=== PATIENT | male | born 2000 | race Caucasian/White ===

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

== ENCOUNTER 2019-04-06 08:00 | Outpatient (CLI) | payer MEDICAID ==
[2019-04-06 11:52] LABS: BASOPHILS % (AUTO) 0.6 %; EOSINOPHILS # (AUTO) 0.1 10^3/uL (0.0-0.7); EOSINOPHILS % (AUTO) 2.1 %; LYMPHOCYTES # (AUTO) 1.9 10^3/uL (1.5-3.5); LYMPHOCYTES % (AUTO) 30.5 %; MEAN CORPUSCULAR HEMOGLOBIN 29.3 pg (27.0-31.0); MEAN CORPUSCULAR HGB CONC 33.4 g/dL (32.0-36.0); MEAN CORPUSCULAR VOLUME 87.7 fL (80.0-94.0); MEAN PLATELET VOLUME 11.4 fL (7.4-11.4); MONOCYTES # (AUTO) 0.6 10^3/uL (0.0-1.0); MONOCYTES % (AUTO) 9.2 %; NEUTROPHILS # (AUTO) 3.6 10^3/uL (1.5-6.6); PLT - PLATELET COUNT 216 10^3/uL (130-450); RED BLOOD COUNT 5.46 10^6/uL (4.70-6.10); WHITE BLOOD COUNT 6.3 x10^3/uL (4.8-10.8)
[2019-04-06 12:15] LABS: ALBUMIN 4.7 g/dL (3.2-5.5); ALBUMIN/GLOBULIN RATIO 1.5 (1.0-2.2); ALKALINE PHOSPHATASE 89 IU/L (42-121); ALT ALANINE AMINOTRANSFERASE 105 IU/L (10-60); AST ASPARTATE AMINOTRANSFERASE 49 IU/L (10-42); BILIRUBIN,TOTAL 1.1 mg/dL (0.2-1.0); BUN - BLOOD UREA NITROGEN 11 mg/dL (6-20); CALCIUM 9.2 mg/dL (8.5-10.3); CARBON DIOXIDE - CO2 25 mmol/L (21-32); CHLORIDE 102 mmol/L (101-111); CHOL/HDL RATIO 6.6 (<5.0); CHOLESTEROL 198 mg/dL; GFR - MDRD 96 (>89); GLUCOSE 132 mg/dL (70-100); HDL CHOLESTEROL 30 mg/dL; LDL CHOLESTEROL,CALCULATED 123 mg/dL; LDL/HDL RATIO 4.1 (<3.6); SODIUM 137 mmol/L (135-145); TOTAL PROTEIN 7.9 g/dL (6.7-8.2); VLDL CHOLESTEROL 45 mg/dL
== END 2019-04-06 23:59 | disposition home or self-care (01) ==
LOC: LAB.N 08:00
PROVIDERS: ATTEND Nurse Practitioner Gerontology
DX: Z00.00 Encounter for general adult medical examination without abnormal findings (principal); Z79.890 Hormone replacement therapy
CPT/HCPCS: 36415; 80053; 80061; 82670; 83721; 84403; 84443; 85025

== ENCOUNTER 2019-04-16 11:39 | Outpatient (CLI) | payer MEDICAID ==
[2019-04-16 18:42] LABS: ALBUMIN 4.4 g/dL (3.2-5.5); ALBUMIN/GLOBULIN RATIO 1.3 (1.0-2.2); BILIRUBIN,TOTAL 0.8 mg/dL (0.2-1.0); CALCIUM 9.4 mg/dL (8.5-10.3); CREATININE 0.7 mg/dL (0.6-1.2); TOTAL PROTEIN 7.7 g/dL (6.7-8.2)
[2019-04-16 19:11] LABS: HB2 TOTAL 16.6 g/dL; HEMOGLOBIN A1C 0.75 g/dL; HEMOGLOBIN A1C % 6.3 % (4.6-6.2)
== END 2019-04-16 23:59 | disposition home or self-care (01) ==
LOC: LAB.N 11:39
PROVIDERS: ATTEND Physician Assistant Medical
DX: R74.8 Abnormal levels of other serum enzymes (principal); R73.9 Hyperglycemia, unspecified
CPT/HCPCS: 36415; 80053; 83036

== ENCOUNTER 2019-08-16 11:59 | Outpatient (CLI) | payer MEDICAID ==
--- NOTE | 2019-08-16 13:33 | Ultrasound Report ---
PROCEDURE: Abdomen Limited INDICATIONS: ABD PX TECHNIQUE: Real-time scanning was performed of the abdominal and retroperitoneal organs, with image documentatio n. COMPARISON: None available. FINDINGS: Liver: Mildly prominent in size. Increased in echogenicity. Gallbladder: Gallbladder is nondistended. No stones or sludge. No gallbladder wall thickening. No per icholecystic fluid. Negative sonographic Yee sign. Biliary ducts: Intrahepatic bile ducts are non-dilated. Extrahepatic bile duct caliber measures 7 m m. Normal is 6-7 mm or less in diameter, or 10 mm or less post-cholecystectomy. Pancreas: Visualized portions of the pancreas are sonographically normal. Right kidney: Normal in size and echotexture. Right kidney measures 12.6 cm long. No hydronephrosis or nephrolithiasis. No solid masses. Aorta: Visualized aorta is normal in caliber at less than 3 cm. Iliacs: Proximal common iliac arteries are normal in caliber at less than 2.5 cm. IVC: Intrahepatic inferior vena cava is patent. Miscellaneous: No free abdominal fluid. IMPRESSION: 1. Hepatomegaly. 2. Increased echogenicity of the hepatic parenchyma. This is most commonly seen in hepatic steatosis. Other forms of hepatocellular disease could have a similar appearance. 3. No gallstones. No acute cholecystitis. 4. No right kidney hydronephrosis. Reviewed by: Hakan Canales MD on 08/16/2019 1:31 PM PDT Approved by: Hakan Canales MD on 08/16/2019 1:31 PM PDT Station ID: [id number]
== END 2019-08-16 12:00 | disposition home or self-care (01) ==
LOC: DI 11:59
PROVIDERS: ATTEND Family Medicine
DX: R16.0 Hepatomegaly, not elsewhere classified (principal)
CPT/HCPCS: 76705

== ENCOUNTER 2019-11-16 10:27 | Outpatient (CLI) | payer MEDICAID ==
[2019-11-16 12:09] LABS: ALBUMIN 4.7 g/dL (3.2-5.5); ALBUMIN/GLOBULIN RATIO 1.4 (1.0-2.2); CALCIUM 9.7 mg/dL (8.5-10.3); CREATININE 0.9 mg/dL (0.6-1.2); TOTAL PROTEIN 8.1 g/dL (6.7-8.2)
[2019-11-16 12:34] LABS: HEMOGLOBIN A1c% 10.7 % (4.27-6.07)
== END 2019-11-16 23:59 | disposition home or self-care (01) ==
LOC: LAB.WCP 10:27
PROVIDERS: ATTEND Nurse Practitioner Family
DX: R73.03 Prediabetes (principal); R74.8 Abnormal levels of other serum enzymes
CPT/HCPCS: 36415; 80053; 83036

== ENCOUNTER 2020-03-13 13:45 | Outpatient (CLI) | payer MEDICAID ==
[2020-03-13 18:38] LABS: ALBUMIN 4.4 g/dL (3.2-5.5); ALBUMIN/GLOBULIN RATIO 1.4 (1.0-2.2); BILIRUBIN,TOTAL 0.9 mg/dL (0.2-1.0); CALCIUM 9.4 mg/dL (8.5-10.3); CREATININE 0.9 mg/dL (0.6-1.2); TOTAL PROTEIN 7.6 g/dL (6.7-8.2)
[2020-03-13 20:06] LABS: HEMOGLOBIN A1c% 9.3 % (4.27-6.07)
== END 2020-03-13 23:59 | disposition home or self-care (01) ==
LOC: LAB.WCP 13:45
PROVIDERS: ATTEND Nurse Practitioner Family
DX: R73.03 Prediabetes (principal); R74.8 Abnormal levels of other serum enzymes
CPT/HCPCS: 36415; 80053; 83036

== ENCOUNTER 2020-06-03 08:00 | Outpatient (CLI) | payer MEDICAID ==
[2020-06-03 18:17] LABS: CREATININE 0.8 mg/dL (0.6-1.2)
[2020-06-03 19:55] LABS: ESTIMATED AVERAGE GLUCOSE 203 mg/dL (70-100); HEMOGLOBIN A1c% 8.7 % (4.27-6.07)
== END 2020-06-03 23:59 | disposition home or self-care (01) ==
LOC: LAB.WCP 08:00
PROVIDERS: ATTEND Nurse Practitioner Family
DX: E11.9 Type 2 diabetes mellitus without complications (principal)
CPT/HCPCS: 36415; 80048; 83036

== ENCOUNTER 2020-11-28 08:00 | Outpatient (CLI) | payer MEDICAID ==
[2020-11-28 17:43] LABS: BASOPHILS # (AUTO) 0.1 10^3/uL (0.0-0.1); BASOPHILS % (AUTO) 0.6 %; EOSINOPHILS # (AUTO) 0.1 10^3/uL (0.0-0.7); EOSINOPHILS % (AUTO) 1.2 %; HCT - HEMATOCRIT 53.4 % (42.0-52.0); HGB - HEMOGLOBIN 17.4 g/dL (14.0-18.0); LYMPHOCYTES # (AUTO) 2.4 10^3/uL (1.5-3.5); MEAN CORPUSCULAR HEMOGLOBIN 29.4 pg (27.0-31.0); MEAN CORPUSCULAR HGB CONC 32.6 g/dL (32.0-36.0); MEAN CORPUSCULAR VOLUME 90.2 fL (80.0-94.0); MEAN PLATELET VOLUME 11.6 fL (7.4-11.4); MONOCYTES # (AUTO) 0.7 10^3/uL (0.0-1.0); MONOCYTES % (AUTO) 8.5 %; NEUTROPHILS # (AUTO) 4.9 10^3/uL (1.5-6.6); NEUTROPHILS % (AUTO) 60.2 %; PLT - PLATELET COUNT 247 10^3/uL (130-450); RED BLOOD COUNT 5.92 10^6/uL (4.70-6.10); RED CELL DISTRIBUTION WIDTH 12.5 % (12.0-15.0); WHITE BLOOD COUNT 8.2 x10^3/uL (4.8-10.8)
[2020-11-28 18:15] LABS: CREATININE,URINE 139.4 mg/dL; MICROALBUM/CREATININE RATIO,UR 39.5 ug/mg (<30.0); MICROALBUMIN,URINE 5.5 mg/dL (0-300.0)
[2020-11-28 18:26] LABS: ALBUMIN/GLOBULIN RATIO 1.5 (1.0-2.2); ALKALINE PHOSPHATASE 68 IU/L (42-121); ALT ALANINE AMINOTRANSFERASE 86 IU/L (10-60); AST ASPARTATE AMINOTRANSFERASE 35 IU/L (10-42); BILIRUBIN,TOTAL 0.8 mg/dL (0.2-1.0); BUN - BLOOD UREA NITROGEN 16 mg/dL (6-20); CALCIUM 10.3 mg/dL (8.5-10.3); CARBON DIOXIDE - CO2 23 mmol/L (21-32); CHLORIDE 107 mmol/L (101-111); CHOL/HDL RATIO 6.3 (<5.0); CHOLESTEROL 209 mg/dL; GFR - MDRD 94 (>89); GLUCOSE 139 mg/dL (70-100); HDL CHOLESTEROL 33 mg/dL; LDL CHOLESTEROL,CALCULATED 115 mg/dL; LDL/HDL RATIO 3.5 (<3.6); POTASSIUM 3.9 mmol/L (3.5-5.0); SODIUM 143 mmol/L (135-145); TOTAL PROTEIN 8.3 g/dL (6.7-8.2); TRIGLYCERIDES 305 mg/dL; VLDL CHOLESTEROL 61 mg/dL
[2020-11-28 18:38] LABS: THYROID STIMULATING HORMONE 2.17 uIU/mL (0.34-5.60)
[2020-11-28 21:32] LABS: ESTIMATED AVERAGE GLUCOSE 171 mg/dL (70-100); HEMOGLOBIN A1c% 7.6 % (4.27-6.07)
== END 2020-11-28 23:59 | disposition home or self-care (01) ==
LOC: LAB.WCP 08:00
PROVIDERS: ATTEND Nurse Practitioner
DX: E11.9 Type 2 diabetes mellitus without complications (principal); R53.83 Other fatigue
CPT/HCPCS: 36415; 80053; 80061; 82043; 82570; 83036; 83721; 84443; 85025

== ENCOUNTER 2021-03-17 08:00 | Outpatient (CLI) | payer MEDICAID | END 2021-03-17 23:59 | LOC: LAB 08:00 | PROVIDERS: ATTEND Physician Assistant | DX: U07.1 COVID-19 (principal) ==

== ENCOUNTER 2021-03-24 11:36 | Outpatient (CLI) | payer MEDICAID ==
--- NOTE | 2021-03-24 13:01 | Ultrasound Report ---
PROCEDURE: Testicle INDICATIONS: MASS OF TESTICLE TECHNIQUE: Real-time scanning was performed of the scrotum and testicles, with image documentation. Color and p ulse Doppler interrogation was performed of both testicles. COMPARISON: None. FINDINGS: Right: Testicle is normal in size at 4.8 x 2.9 x 3.2 cm, and homogenous in echotexture. There are a few scattered testicular microliths identified. Epididymis is normal in overall size and morphology. No varicoceles. Small right hydrocele. Overlying scrotal skin is normal in thickness. Left: Testicle is normal in size at 4.4 x 2.7 x 2.9 cm, and homogeneous in echotexture. There are a few testicular microlithiasis identified. Small left hydrocele which is larger than the right side. Epididymis is normal in overall size and morphology. No varicoceles. Overlying scrotal skin is norm al in thickness. Doppler: Color and pulse Doppler demonstrate normal and symmetric arterial flow in both testicles. IMPRESSION: 1. No acute sonographic abnormalities identified in the bilateral testes. No evidence for torsion. 2. No focal testicular mass lesions. Small bilateral hydroceles larger on the left. 3. Bilateral testicular microlithiasis. This is nonspecific. However, there is reported possible asso ciation with increased risk for testicular cancer. In the absence of an associated testicular mass, r ecommend continued clinical surveillance as well as monthly self examination and consideration for an nual testicular ultrasound. Reviewed by: Javier Beavers MD on 03/24/2021 1:00 PM PST Approved by: Javier Beavers MD on 03/24/2021 1:00 PM PST Station ID: [id number]
== END 2021-03-24 11:37 | disposition home or self-care (01) ==
LOC: DI 11:36
PROVIDERS: ATTEND Physician Assistant
DX: N50.89 Other specified disorders of the male genital organs (principal); N43.3 Hydrocele, unspecified

== ENCOUNTER 2021-04-28 08:00 | Outpatient (CLI) | payer MEDICAID ==
[2021-04-28 18:15] LABS: ALBUMIN 4.7 g/dL (3.2-5.5); ALBUMIN/GLOBULIN RATIO 1.3 (1.0-2.2); BILIRUBIN,TOTAL 0.7 mg/dL (0.2-1.0); CALCIUM 10.1 mg/dL (8.5-10.3); CREATININE 0.7 mg/dL (0.6-1.2); POTASSIUM 4.1 mmol/L (3.5-5.0); TOTAL PROTEIN 8.3 g/dL (6.7-8.2)
[2021-04-28 18:23] LABS: BASOPHILS # (AUTO) 0.1 10^3/uL (0.0-0.1); BASOPHILS % (AUTO) 0.7 %; EOSINOPHILS # (AUTO) 0.1 10^3/uL (0.0-0.7); EOSINOPHILS % (AUTO) 1.4 %; HCT - HEMATOCRIT 49.8 % (42.0-52.0); HGB - HEMOGLOBIN 16.9 g/dL (14.0-18.0); LYMPHOCYTES # (AUTO) 3.2 10^3/uL (1.5-3.5); LYMPHOCYTES % (AUTO) 38.1 %; MEAN CORPUSCULAR HEMOGLOBIN 29.9 pg (27.0-31.0); MEAN CORPUSCULAR HGB CONC 33.9 g/dL (32.0-36.0); MEAN PLATELET VOLUME 11.7 fL (7.4-11.4); MONOCYTES # (AUTO) 0.7 10^3/uL (0.0-1.0); MONOCYTES % (AUTO) 8.8 %; NEUTROPHILS # (AUTO) 4.2 10^3/uL (1.5-6.6); NEUTROPHILS % (AUTO) 50.2 %; PLT - PLATELET COUNT 204 10^3/uL (130-450); RED BLOOD COUNT 5.66 10^6/uL (4.70-6.10); RED CELL DISTRIBUTION WIDTH 12.3 % (12.0-15.0); WHITE BLOOD COUNT 8.4 x10^3/uL (4.8-10.8)
[2021-04-28 20:20] LABS: ESTIMATED AVERAGE GLUCOSE 212 mg/dL (70-100)
== END 2021-04-28 23:59 ==
LOC: LAB.N 08:00
PROVIDERS: ATTEND Nurse Practitioner
DX: R35.0 Frequency of micturition (principal)
CPT/HCPCS: 36415; 80053; 83036; 85025

== ENCOUNTER 2021-05-07 08:00 | Outpatient (CLI) | payer MEDICAID ==
[2021-05-07 17:53] LABS: BILIRUBIN,URINE NEGATIVE (NEGATIVE); GLUCOSE, URINE (UA) >=1000 mg/dL (NEGATIVE); KETONES,URINE (UA) TRACE mg/dL (NEGATIVE); LEUKOCYTE ESTERASE, URINE NEGATIVE (NEGATIVE); NITRITE,URINE NEGATIVE (NEGATIVE); OCCULT BLOOD,URINE NEGATIVE (NEGATIVE); PH,URINE 5.5 PH (5.0-7.5); PROTEIN,URINE NEGATIVE (NEGATIVE); UROBILINOGEN,URINE 0.2 (NORMAL) E.U./dL (NORMAL)
[2021-05-07 17:56] LABS: CLARITY,URINE CLEAR (CLEAR)
[2021-05-07 18:21] LABS: BACTERIA,URINE Moderate /HPF (None Seen); RBC,URINE None Seen /HPF (0-5); SQUAMOUS EPITHELIAL CELL,UR FEW Squamous (<= Few); WBC,URINE 0-3 /HPF (0-3)
== END 2021-05-07 23:59 | disposition home or self-care (01) ==
LOC: LAB.WCP 08:00
PROVIDERS: ATTEND Nurse Practitioner
DX: R30.0 Dysuria (principal)
CPT/HCPCS: 81001; 87086

== ENCOUNTER 2022-11-30 14:05 | Outpatient (CLI) | payer MEDICAID ==
--- NOTE | 2022-11-30 14:40 | Sleep Patient Instructions ---
Sleep Center Visit Summary - Patient Visit Information Reason for Visit: Initial Consultation - Patient Instructions Instructions Attached: Sleep Study, Sleep Clinic Visit, Sleep Study Home Monitor Additional Instructions: You will be completing a sleep study, either an in-lab polysomnography (PSG) or home sleep study (HST). You will follow-up in the sleep care office after the sleep study is completed to hear the results and talk about therapy, if needed. You will be called by our office staff to schedule this appointment, but you may contact us with any questions. - Clinic Information Contact: [facility] [address] [place] [address] [email or web address] T: [phone]
--- NOTE | 2022-11-30 14:47 | SLEEP CARE CONSULTATION ---
Information from patient questionnaire entered by Dominga Judge. I have reviewed and concur with the information entered by Dominga Judge. This document represents the service I personally performed and the decisions made by me, Paula Khan ARNP. History of Present Illness Service Date and Time: 11/30/2022 1405 Reason for Visit: New patient Accompanied by: igor Feliciano Chief Complaint: reports: Insomnia, Snoring, Other (HIGH RED BLOOD CELL COUNT) Date of Onset: 5+YRS Usual bedtime: N/A, does not have a regular bedtime Time it takes to fall asleep: 5-10MIN Snores at night: Yes Observed to quit breathing while asleep: No Number of times waking at night: 2 Reasons for waking at night: reports: Choking (due to acid reflux), Bathroom. denies: Snoring, Gasping for air Toss, Turn, or Twitch while sleeping: Yes Recalls having dreams: Yes Usually gets out of bed at: 9AM (only if goes to sleep by 11 PM) Feels refreshed in the morning: Yes Morning headache: No Sleepy or fatigued during the day: No Ever fallen asleep while driving: No (does not drive) Takes day naps: Yes (1-2 a week; 30 mins to 1-3 hours) Dreams during day naps: Yes Prior sleep studies: No Additional HPI information: I had the pleasure of seeing BRANDON RICE today regarding the possibility of him having a sleep disorder. His current complaints are snoring, insomnia and high red blood cell count. His doctor sent him here due to the high red blood cell count. He has been told that he snores but his mother cannot tell me if he has ever stopped breathing in his sleep. He does not have a regular bedtime, but says if he can go to sleep by 11 PM he will get up by 9 AM. He states he feels rested when he gets up in the morning. His mother tells me that his father did have sleep apnea and used a CPAP but no longer has sleep apnea. He had a sleep study that cleared him. Brandon (Dei) states that he will occasionally take a nap during the day if he is still tired. He states he does not drive. - Parasomnia Symptoms Ever been unable to move upon waking from sleep: Yes (rare occurance, 2 times in life) Walks in sleep: No Talks in sleep: Yes Ever acted out dreams in sleep: No Ever felt weak in the knees when startled or emotional: No Bothered by creepy, crawly, restless sensations in legs: No Problems with memory or concentration: Yes (concentration, has ADHD) Subjective Initial [place] Sleepiness Scale score: 5 (11/30/22) Past Medical History Past Medical History: reports: Diabetes, Anxiety, Depression, Mood disorder (bipolar depression), Attention deficit, Other (Autism) Social History The patient's occupation is a [employer]. Patient is Single and lives in [place]. Have you smoked in the past 12 months: Yes (vapes nicotine for 3-4 years) Alcohol use: Yes Alcohol amount and frequency: 1-2 GLASSES RARLEY 1 X MONTH -1 X YR Caffeine use: Yes Caffeine amount and frequency: 3 CUPS ONCE A WEEK Family History Family history of sleep disordered breathing: Yes Family Hx Sleep Apnea: Mother: Snoring, Father: Snoring, Sleep apnea - Treated Allergies and Home Medications Known drug allergies: No (benadryl as a child only, not retested ) Drug allergies reviewed: Yes Home medication list reviewed: Yes Allergy and home medication list: Allergies diphenhydramine HCl * [From Benadryl] Adverse Reaction (Verified 11/29/22 09:56) Unknown Per mother - Patient "gets an erection when he takes it" Home Medications Medication Instructions Recorded Confirmed Last Taken Type Albuterol Sulf [Ventolin Hfa 1 - 2 puffs INH Q4HR PRN 10/09/21 11/30/22 Unknown History Inhaler] Empagliflozin [Jardiance] See Rx Instructions .ROUTE .COMPLEX 10/09/21 11/30/22 Unknown History Liraglutide [Victoza 2-Luis F] 0.6 mg SQ DAILY 10/09/21 11/30/22 Unknown History Review of Systems Cardiovascular: denies: high blood pressure Respiratory: reports: shortness of breath Gastrointestinal: reports: heartburn Neurological: denies: headaches Psychiatric: reports: Attention Deficit Hyperactivity, anxiety, depression, mood disorder Ear/Nose/Throat: reports: wisdom teeth removed. denies: tonsillectomy Endocrine: reports: too hot or cold Musculoskeletal: reports: joint pain, back pain Immunologic: reports: allergies to food or environment Physical Exam Vital signs obtained and entered by: DOMINGA Krishna MA Blood Pressure: 116/82 (RIGHT) Cuff size: wrist Heart Rate: 91 O2 Saturation: 96 Height: 6 ft Weight: 239 lb Body Mass Index: 32.4 BMI Classification: Obese Neck circumference: 17.5 Mouth and throat: narrow oropharynx Soft palate: long Hard palate: normal Uvula: normal Uvula visualization: 25% Mallampati Class III Tongue: normal in size Tonsils: small Neck: normal w/o lymphadenopathy or thyromegaly Heart: regular rate and rhythm Lungs: clear bilaterally Impression and Plan 1. Suspected Obstructive Sleep Apnea-Hypopnea Syndrome, as previously diagnosed.suggested by a history of loud and irregular snoring, gasping or choking in sleep and cognitive impairment. He has a history of diabetes, ADHD and a mood disorder (bipolar depression). Narrow oropharynx and obesity are common predisposing factors for obstructive sleep apnea-hypopnea syndrome. I recommend proceeding to polysomnography to confirm the diagnosis and to assess severity. If the patient has significant sleep disordered breathing, a manual CPAP titration study will also be performed to find the optimal treatment p ressure. I informed the patient of what the sleep studies involve and after some discussion, obtained agreement to proceed. The pathophysiology of obstructive sleep apnea-hypopnea syndrome was discussed with the patient and health risks of cardiovascular and cerebrovascular disease if not treated. 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 Patient agreed to plan. * Schedule polysomnography. * Avoid long distance driving or driving when feeling sleepy. * Avoid alcohol, sedative and muscle relaxant around bedtime. * Attempt to lose weight. * Review instructions provided by trained office staff on how to prepare for the sleep study. * Return for follow-up after sleep study completed. Counseling Topics: Weight loss health impact Plan: PSG/HST Visit Type: In Office Time Spent with Patient (minutes): 30 Provider Statement: I spent 100% of the Face to Face Visit with the patient with greater than 50% spent counseling the patient and coordination of care.
[2022-11-30 14:51] VITALS: BP 116/82; O2SAT 96
== END 2022-11-30 14:06 | disposition home or self-care (01) ==
LOC: SC 14:05
PROVIDERS: ATTEND Nurse Practitioner Family
DX: R53.83 Other fatigue (principal); R06.83 Snoring; R71.8 Other abnormality of red blood cells; F90.9 Attention-deficit hyperactivity disorder, unspecified type; E66.9 Obesity, unspecified; Z68.32 Body mass index [BMI] 32.0-32.9, adult
CPT/HCPCS: 99203; 99212

== ENCOUNTER 2022-12-30 20:25 | Outpatient (CLI) | payer MEDICAID | END 2022-12-30 20:26 | disposition home or self-care (01) | LOC: SC 20:25 | PROVIDERS: ATTEND Nurse Practitioner Family | DX: R09.02 Hypoxemia (principal) | CPT/HCPCS: 95810 ==

== ENCOUNTER 2023-01-18 11:14 | Outpatient (CLI) | payer MEDICAID ==
--- NOTE | 2023-01-18 12:04 | Sleep Patient Instructions ---
Sleep Center Visit Summary - Patient Visit Information Reason for Visit: Sleep study follow-up - Patient Instructions Additional Instructions: Your sleep study today was negative for significant sleep disordered breathing. However, you did have some mild hypoxemia with low baseline oxygen saturation occasionally during the sleep study. I advise you to follow up with primary doctor for further evaluation. Follow-up in sleep care as needed. - Clinic Information Contact: [facility] [address] [place] [id number] [email or web address] T: [phone]
--- NOTE | 2023-01-18 12:07 | SLEEP CARE CONSULTATION ---
Information from patient questionnaire entered by Dominga Judge. I have reviewed and concur with the information entered by Dominga Judge. This document represents the service I personally performed and the decisions made by me, Paula Khan ARNP. History of Present Illness Service Date and Time: 01/18/2023 1114 Accompanied by: Ivanna Moreno Initial [place] Sleepiness Scale score: 5 (11/30/22) Current [place] Sleepiness Scale score: 6 Additional HPI information: BRANDON RICE returns for follow up and results of the recently performed polysomnography. He is accompanied by his mother, Ivanna. The patient was informed of the following findings: No significant sleep disordered breathing with an average AHI of 1.8 and julieta oxygen saturation of 86%. I explained the pathophysiology behind obstructive sleep apnea. Patient does not have sleep apnea and was advised how weight gain could increase the risk of developing sleep apnea in the future. I strongly encouraged the patient to lose weight. Patient counseled not drink alcohol less than 4 hours before bedtime as it can increase snoring and apnea. Patient was cautioned about risks of drowsy driving until sleepiness symptoms resolve. Patient denies drowsy driving. He does not drive. Sleep Study - Results Type of Sleep Study: Polysomnography (COMPLETED 12/30/22) Prior sleep studies: No Allergies and Home Medications Known drug allergies: Yes (diphenhydramine) Drug allergies reviewed: Yes Home medication list reviewed: Yes (no changes) Allergy and home medication list: Allergies diphenhydramine HCl * [From Benadryl] Adverse Reaction (Verified 01/17/23 09:56) Unknown Per mother - Patient "gets an erection when he takes it" Review of Systems Review of systems same as previous: Yes (no changes) Physical Exam Vital signs obtained and entered by: PAULA MILTON Blood Pressure: 92/66 Cuff size: wrist (right) Heart Rate: 83 O2 Saturation: 97 Height: 6 ft Weight: 239 lb Body Mass Index: 32.4 BMI Classification: Obese Impression and Plan 1. Hypoxemia, mild, with a julieta oxygen saturation of 86% and 0.9 minutes spent under 90%. He had occasional low baseline oxygen saturation but was otherwise normal with an average oxygen saturation of 92%. While oxygen supplementation is not needed at this time, further evaluation of low oxygen saturation recommended. 2. Obesity, unspecified. Currently patients BMI is 32.4. Obesity increases the risk of apnea, CPAP pressure requirements and overall health risks especially cardiovascular and diabetes. Thus patient is advised to lose weight. * Followup with PCP for mild hypoxemia during sleep study * Attempt to lose weight * Avoid alcohol consumption near bedtime * Return as needed for follow up. Counseling Topics: Weight loss health impact Follow up with Sleep Care in: as needed Follow up with: PCP Follow up recommended for: Hypoxia (mild) Visit Type: In Office Time Spent with Patient (minutes): 20 Provider Statement: I spent 100% of the Face to Face Visit with the patient with greater than 50% spent counseling the patient and coordination of care.
[2023-01-18 12:09] VITALS: BP 92/66; O2SAT 97
== END 2023-01-18 11:15 | disposition home or self-care (01) ==
LOC: SC 11:14
PROVIDERS: ATTEND Nurse Practitioner Family
DX: R09.02 Hypoxemia (principal); E66.9 Obesity, unspecified; Z68.32 Body mass index [BMI] 32.0-32.9, adult
CPT/HCPCS: 99212; 99213

== ENCOUNTER 2023-04-05 08:00 | Outpatient (CLI) | payer MEDICAID ==
[2023-04-05 17:46] LABS: BILIRUBIN,URINE NEGATIVE (NEGATIVE); GLUCOSE, URINE (UA) >=1000 mg/dL (NEGATIVE); KETONES,URINE (UA) NEGATIVE (NEGATIVE); LEUKOCYTE ESTERASE, URINE NEGATIVE (NEGATIVE); NITRITE,URINE NEGATIVE (NEGATIVE); OCCULT BLOOD,URINE NEGATIVE (NEGATIVE); PROTEIN,URINE NEGATIVE (NEGATIVE); UROBILINOGEN,URINE 0.2 (NORMAL) E.U./dL (NORMAL)
[2023-04-05 17:55] LABS: CLARITY,URINE CLEAR (CLEAR); WBC,URINE 0-3 /HPF (0-3)
[2023-04-05 17:56] LABS: BACTERIA,URINE Rare /HPF (None Seen); RBC,URINE 0-5 /HPF (0-5); SQUAMOUS EPITHELIAL CELL,UR RARE Squamous (<= Few)
[2023-04-05 18:00] LABS: CREATININE,URINE 101.9 mg/dL; MICROALBUM/CREATININE RATIO,UR 33.4 ug/mg (<30.0); MICROALBUMIN,URINE 3.4 mg/dL
[2023-04-05 20:14] LABS: CHLAMYDIA TRACHOMATIS DNA NEGATIVE (NEGATIVE); NEISSERIA GONORRHOEAE DNA NEGATIVE (NEGATIVE); TRICHOMONAS VAGINALIS DNA NEGATIVE (NEGATIVE)
== END 2023-04-05 23:59 | disposition home or self-care (01) ==
LOC: LAB.N 08:00
PROVIDERS: ATTEND Physician Assistant
DX: E11.9 Type 2 diabetes mellitus without complications (principal); R31.0 Gross hematuria
CPT/HCPCS: 81001; 82043; 82570; 87086; 87491; 87591; 87661

== ENCOUNTER 2023-04-29 11:45 | Emergency (ER) | payer MEDICAID ==
[2023-04-29 11:58] VITALS: BP 129/83; O2SAT 98
--- NOTE | 2023-04-29 12:34 | XRAY Report ---
PROCEDURE: Chest 2V INDICATIONS: Cough TECHNIQUE: 2 views of the chest were acquired. COMPARISON: None. FINDINGS: Surgical changes and devices: None. Lungs and pleura: No pleural effusions or pneumothorax. Lungs are clear. Mediastinum: Mediastinal contours appear normal. Heart size is normal. Bones and chest wall: No suspicious bony lesions. Overlying soft tissues appear unremarkable. IMPRESSION: No acute cardiopulmonary process. Reviewed by: Feliz Goodwin MD on 04/29/2023 12:33 PM [facility] Approved by: Feliz Goodwin MD on 04/29/2023 12:33 PM PST Station ID: [id number]
--- NOTE | 2023-04-29 12:56 | ED Physician Documentation ---
PD HPI URI - Stated complaint Stated Complaint: FLU LIKE SX - Chief complaint Chief Complaint: General - History obtained from History obtained from: Patient - History of Present Illness Timing - onset: How many days ago (3) Timing duration: Days (3) Timing details: Abrupt onset, Still present Associated symptoms: Fever, Chills, Dry cough, Chest pain (some anterior and lower left with coughing.), Dyspnea. No: Bilateral edema Contributing factors: No: Sick contact, COPD / asthma Worsened by: Activity, Breathing, Other (cough) Similar symptoms before: Has not had sx before Review of Systems Constitutional: reports: Fever, Chills, Myalgias Nose: reports: Congestion Throat: denies: Sore throat Cardiac: reports: Chest pain / pressure. denies: Palpitations Respiratory: reports: Dyspnea, Cough GI: reports: Nausea, Diarrhea (mild). denies: Abdominal Pain, Vomiting Skin: denies: Rash PD PAST MEDICAL HISTORY - Past Medical History Past Medical History: Yes Cardiovascular: None Respiratory: None Endocrine/Autoimmune: Type 2 diabetes GI: None : Other HEENT: None Psych: Depression, ADD/ADHD Derm: None - Past Surgical History Past Surgical History: No - Present Medications Home Medications: Ambulatory Orders Medication Instructions Recorded Confirmed Albuterol Sulf [Ventolin Hfa 1 - 2 puffs INH Q4HR PRN 10/09/21 04/29/23 Inhaler] Liraglutide [Victoza 2-Luis F] 0.6 mg SQ DAILY 10/09/21 04/29/23 Benzonatate [Tessalon] 100 mg PO TID PRN #20 cap 04/29/23 Glimepiride 0.5 mg PO DAILY 04/29/23 04/29/23 Ondansetron Odt [Zofran] 4 mg TL Q6H PRN #12 tablet 04/29/23 dexAMETHasone [Decadron] 4 mg PO DAILY #5 tablet 04/29/23 - Allergies Allergies/Adverse Reactions: Allergies Allergy/AdvReac Type Severity Reaction Status Date / Time diphenhydramine HCl * AdvReac Unknown Verified 04/29/23 11:57 [From Benadryl] - Social History Does the pt smoke?: No Smoking Status: Never smoker Does the pt drink ETOH?: No Does the pt have substance abuse?: No - Immunizations Immunizations are current?: Yes - POLST Patient has POLST: No PD ED PE NORMAL - Vitals Vital signs reviewed: Yes - General General: Alert and oriented X 3, No acute distress (but does appear ill and unhappy. frequent coughing. ), Well developed/nourished - HEENT HEENT: Pharynx benign - Neck Neck: Supple, no meningeal sign, No adenopathy - Cardiac Cardiac: RRR, No murmur - Respiratory Respiratory: No respiratory distress. No: Clear bilaterally (no coarse sounds but exp wheezing noted vane with coughing. ) - Abdomen Abdomen: Soft, Non tender Results - Vitals Vitals: Oxygen O2 Source Room air - Labs Labs: Laboratory Tests 04/29/23 12:01 Nasal Adenovirus (PCR) NOT DETECTED Nasal B. parapertussis DNA (PCR) NOT DETECTED Nasal Coronavir 229E PCR NOT DETECTED Nasal Coronavir HKU1 PCR NOT DETECTED Nasal Coronavir NL63 PCR NOT DETECTED Nasal Coronavir OC43 PCR NOT DETECTED Nasal Enterovir/Rhinovir PCR DETECTED A Nasal Influenza B PCR NOT DETECTED Nasal Influenza A PCR NOT DETECTED Nasal Parainfluen 1 PCR NOT DETECTED Nasal Parainfluen 2 PCR NOT DETECTED Nasal Parainfluen 3 PCR NOT DETECTED Nasal Parainfluen 4 PCR NOT DETECTED Nasal RSV (PCR) NOT DETECTED Nasal B.pertussis DNA PCR NOT DETECTED Nasal C.pneumoniae (PCR) NOT DETECTED Fortunato Human Metapneumo PCR NOT DETECTED Nasal M.pneumoniae (PCR) NOT DETECTED Nasal SARS-CoV-2 (PCR) NOT DETECTED - Rads (name of study) chest xray Relevant Findings:: Prelim report reviewed, EMP independent interpretation of test (no infiltrates nor acute process) PD Medical Decision Making - ED course Complexity details: reviewed results, considered differential, d/w patient Departure - Departure Disposition: 01 Home, Self Care Clinical Impression: Acute bronchitis due to Rhinovirus, Nausea, Dyspnea Condition: Stable Record reviewed to determine appropriate education?: Yes Instructions: ED Upper Resp Infec No Abx Tx Prescriptions: dexAMETHasone [Decadron] 4 mg PO DAILY #5 tablet Benzonatate [Tessalon] 100 mg PO TID PRN #20 cap PRN Reason: Cough Ondansetron Odt [Zofran] 4 mg TL Q6H PRN #12 tablet PRN Reason: Nausea / Vomiting Comments: Use your inhaler at home 2 puffs 4 times daily for the next several days or more to help with breathing and cough. Your chest x-ray is clear without any signs of pneumonia nor fluid collected in the lungs. Your viral respiratory test was positive for a virus called rhinovirus which will act flulike and give the symptoms you are having. The test was negative for COVID, flu itself, RSV as the major viruses. We can try to help your symptoms with Decadron steroid for inflammation of the bronchioles. Ondansetron to help with nausea. Stay well-hydrated. Use Tylenol every 4-6 hours if needed for fevers or pains. Benzonatate can be helpful for cough. In addition it is okay to use uroc-enf-ylouawz medicine such as DayQuil or NyQuil or guaifenesin or such to help with symptoms. I would anticipate symptoms for several days more as the duration for this is typically about a week. I sent your prescriptions to your preferred pharmacy. Forms: PCP List Discharge Date/Time: 04/29/23 13:55
[2023-04-29 13:01] LABS: B. PARAPERTUSSIS- RESP PCR PAN NOT DETECTED; B. PERTUSSIS- RESP PCR PANEL NOT DETECTED; C. PNEUMONIAE- RESP PCR PANEL NOT DETECTED; CORONAVIRUS 229E-RESP PCR NOT DETECTED; CORONAVIRUS HKU1-RESP PCR NOT DETECTED; CORONAVIRUS NL63-RESP PCR NOT DETECTED; CORONAVIRUS OC43-RESP PCR NOT DETECTED; HUMAN METAPNEUMOVIRUS NOT DETECTED; INFLUENZA A- RESP PCR PANEL NOT DETECTED; INFLUENZA B - RESP PCR PANEL NOT DETECTED; M. PNEUMONIAE- RESP PCR PANEL NOT DETECTED; PARAINFLUENZA VIRUS 1 NOT DETECTED; PARAINFLUENZA VIRUS 2 NOT DETECTED; PARAINFLUENZA VIRUS 3 NOT DETECTED; PARAINFLUENZA VIRUS 4 NOT DETECTED; RHINOVIRUS/ENTEROVIRUS DETECTED; RSV- RESP PCR PANEL NOT DETECTED; SARS-CoV-2 -RESP PCR PANEL NOT DETECTED
[2023-04-29] MEDS: dexAMETHasone 4 MG TABLET PO STA (13:31)
[2023-04-29] MEDS: BENZONATATE 100 MG CAPSULE PO STA (13:32)
[2023-04-29] MEDS: ALBUTEROL 1 PUFF INH STA (13:34)
== END 2023-04-29 13:55 | disposition home or self-care (01) ==
LOC: EDUNIT# → EDBD → ED 11:45
DX: J20.6 Acute bronchitis due to rhinovirus (principal); E11.9 Type 2 diabetes mellitus without complications; Z79.84 Long term (current) use of oral hypoglycemic drugs
CPT/HCPCS: 71046; 87633; 94640; 94664; 99283; 99284; A9270; J8540

== ENCOUNTER 2023-08-09 09:52 | Outpatient (CLI) | payer MEDICAID ==
[2023-08-09] MEDS ORDERED: iohexoL-300 150 ML BOTTLE ONE (09:54)
[2023-08-09 10:53] LABS: ALBUMIN 4.5 g/dL (3.2-5.5); ALBUMIN/GLOBULIN RATIO 1.6 (1.0-2.2); BILIRUBIN,TOTAL 0.7 mg/dL (0.2-1.0); CALCIUM 9.9 mg/dL (8.5-10.3); CREATININE 0.7 mg/dL (0.6-1.3); POTASSIUM 3.7 mmol/L (3.5-4.5); TOTAL PROTEIN 7.3 g/dL (6.4-8.9)
[2023-08-09 11:19] LABS: ESTIMATED AVERAGE GLUCOSE 232 mg/dL (70-100); HEMOGLOBIN A1c% 9.7 % (4.27-6.07)
[2023-08-09] MEDS: iohexoL-300 150 ML BOTTLE IVP ONE (13:26)
--- NOTE | 2023-08-09 13:53 | CT Report ---
PROCEDURE: IVP INDICATIONS: GROSS HEMATURIA CONTRAST: Omni 300 140ml TECHNIQUE: A [address] of the abdomen and pelvis was performed. Non-contrast and contrast images were recorded and evaluated at appropriate window settings. Images were recorded and evaluated at appropriate windo w settings. Reformats: coronal and sagittal. For radiation dose reduction, the following was used: au tomated exposure control, adjustment of mA and/or kV according to patient size. COMPARISON: None. FINDINGS: Image quality: Diagnostic Lower chest: Lung bases appear unremarkable. Normal heart size where visualized Liver: Hepatic steatosis.Small hyperattenuating lesion in the anterior portion of the left lobe measu ring 8 mm (10/19), possibly focal fatty sparing. Gallbladder and biliary system: Unremarkable Pancreas: No ductal dilation Spleen: Nonenlarged Adrenals: No discrete nodules Kidneys: No hydronephrosis. No solid renal mass. No calcified stones. No ureter filling defects. Area s of nonfilling likely represent peristalsis, particularly on the right. Vessels and lymph nodes: Main portal vein appears patent. No abdominal aortic aneurysm or pathologic lymph nodes by size criteria Bowel and peritoneum: No evidence of small bowel obstruction. There are colonic diverticula. No patho logic ascites or drainable abscess Body wall: Possible small hydroceles partially seen. Tiny fat-containing umbilical hernia Pelvis: Small hyperdensity and irregularity are seen at the bladder dome (4/36). Prostate is not well evaluated on this study, no gross abnormality. Bones: No acute or suspicious osseous finding. There are degenerative changes. IMPRESSION: No significant upper tract disease identified on CT IVP. Small hyperdensity and irregularity at the bladder dome, not well evaluated on CT. The lower tracts c ould be better assessed on cystoscopy. Hepatic steatosis. Small hyperattenuating lesion in the anterior left lobe favored to represent focal fatty sparing, however consider follow-up if the patient has a primary history of malignancy. Other findings above. Reviewed by: Jacques Lindsay MD on 08/09/2023 1:51 PM PDT Approved by: Jacques Lindsay MD on 08/09/2023 1:51 PM PDT Station ID: [id number]
[2023-08-10 05:14] LABS: HSV 2 IGG TYPE SPEC <0.91 index (0.00-0.90)
== END 2023-08-09 09:53 | disposition home or self-care (01) ==
LOC: DI 09:52
PROVIDERS: ATTEND Urology
DX: R31.0 Gross hematuria (principal); N32.9 Bladder disorder, unspecified; E11.9 Type 2 diabetes mellitus without complications; K76.0 Fatty (change of) liver, not elsewhere classified; K76.9 Liver disease, unspecified
CPT/HCPCS: 36415; 80053; 83036; 86695; 86696